=== PATIENT | male | born 1995 | race Two or more races ===

== ENCOUNTER 2016-04-21 18:32 | Emergency (ER) | payer OTHER ==
[~2016-04-21] VITALS: Ht 185.4 cm; Wt 80.0 kg
[~2016-04-21 18:32] MED LIST: CRUTMIS25; HYDR-3288 PO
[2016-04-21 18:49] VITALS: BP 135/67; PULSE 91; RESP 18; TEMP 101.6; O2SAT 98
[2016-04-21] MEDS ORDERED: ONDANSETRON HCL 4 MG/2 ML VIAL IV ONE (19:30)
[2016-04-21] MEDS ORDERED: SODIUM CHLOR 0.9% 1000 ML INJ 1,000 ML IV ONE ×2 (19:30→21:00)
--- NOTE | 2016-04-21 19:31 | PD ---
HPI Chief Complaint: Cold / Flu Symptoms Time Seen by Provider: 19:13 Travel History International Travel<30 days: No Contact w/Intl Traveler<30days: No Traveled to known affect area: No History of Present Illness HPI The patient is a 20 year old male who presents to the [facility] emergency department with a history of reportedly beginning to feel ill 4 days ago. The patient reports that this began with congestion and cough. He reports that he then developed nausea and vomiting on April 18 and then diarrhea over the last 2 days. He reports that over the last 24 hours she's had 2-3 episodes of brown loose stools. He denies having any mucus or blood in his stool. The patient reports that he has had generalized weakness. The patient arrives with a temperature of 101.6. He denies taking any Tylenol or ibuprofen for fever or discomfort prior to arrival. The patient reports that he has not been able to keep fluids down today. He reports that his emesis appears to be bilious. The patient's recent history is, located by approximately one month ago being diagnosed with a bimalleolar fracture of the right ankle status post surgical repair. The patient reports he went to [place] after having the repair done and did not follow-up with orthopedic physician. He reports that the splint that he was and became wet and "disgusting "therefore he removed it. The patient also has sutures in place that were not removed. The patient denies having any redness or increased swelling of the site. He reports that it has been chronically painful. He reports that since taking it out of the splint he has fallen 2 times. He cannot recall the name of the orthopedic physician that he was supposed to follow-up with. The patient denies any history of neck pain, chest pain, shortness of breath, abdominal pain, vomiting , diarrhea, urinary symptoms, or neurologic symptoms. [facility] Past Medical History Narrative Medical The patient's past medical history is significant for attention deficit disorder , however he is not currently on medication for treatment. ADHD: Yes (ADHD) Asthma: Yes (IN CHILDHOOD) Bipolar Disorder: Yes Anxiety: No Depression: No Cancer: No Cardiovascular Problems: No High Cholesterol: No Developmental Delay: No Diabetes: No Diminished Hearing: No Endocrine: No Genitourinary: No Immune Disorder: No Musculoskeletal: No Neurologic: No Psychiatric: Yes (ADHD, BPD) Reproductive: No Respiratory: No Immunizations Current: Yes Migraines: No Seizures: No Thyroid Disease: No Ulcer: No Past Surgical History Narrative Surgical The patient's past surgical history is significant for dental surgery, and ORIF of the right ankle bimalleolar fracture with syndesmosis disruption of the right ankle Appendectomy: No Cholecystectomy: No Eye Surgery: Yes (States due to scarring in his retina.) Oral Surgery: Yes (PERIODONTAL SURGERY 2-3 YEARS AGO) Pacemaker: No Other Surgery: Yes (2-3 YEARS AGO--REMOVAL OF IMPACTED TOOTH) Social History Alcohol Use: No Tobacco Use: Yes Substance Use: Yes (MARIJUANA) Allergies-Medications (Allergen,Severity, Reaction): Coded Allergies: No Known Allergies (Verified , 08/15/14) Reported Meds & Prescriptions Reported Meds & Active Scripts Active Zofran Odt (Ondansetron Odt) 4 Mg Tab 4 Mg SL Q6HR PRN Crutch/Aluminum/Adult (Device) 1 Mis Mis 1 Ea .ROUTE DIRECTED Kaleva (Hydrocodone-Acetaminophen) 7.5-325 mg Tab 1 Tab PO Q4H PRN Review of Systems Except as stated in HPI: all other systems reviewed are Neg General / Constitutional: Positive: Fever, Chills Eyes: No: Visual changes HENT: Positive: Sore Throat, Rhinorrhea, Congestion, No: Headaches Cardiovascular: No: Chest Pain or Discomfort, Dyspnea on exertion Respiratory: Positive: Cough, No: Shortness of Breath Gastrointestinal: Positive: Nausea, Vomiting, Diarrhea, Changes in Bowel Habits , No: Abdominal Pain, Hematemesis, Hematochezia, Constipation, Indigestion, Loss of Appetite Genitourinary: No: Dysuria, Flank Pain Musculoskeletal: Positive: Myalgias, Arthralgias, Limited ROM, Pain Skin: No Rash Neurologic: Positive: Weakness (generalized weakness), No: Focal Abnormalities , Change in Mentation, Slurred Speech, Sensory Disturbance Psychiatric: No: Depression Endocrine: No: Polydipsia Hematologic/Lymphatic: No: Easy Bruising Physical Exam Narrative General: The patient is a well-developed well-nourished male noted to be retching on my arrival to the room. Head and Neck exam: Head is normocephalic atraumatic. Eyes: Pupils are equal round and reactive to light. Nose: Midline septum with erythematous edematous nasal mucosa and clear to white nasal discharge noted. Mouth: Dentition unremarkable. Moist mucus membranes. Posterior oropharynx is slightly erythematous. No tonsillar hypertrophy. Uvula midline. Airway patent. Neck: No palpable lymphadenopathy. No nuchal rigidity. No thyromegaly. Cardiovascular: Regular rate and rhythm without murmurs, gallops, or rubs. Lungs: Clear to auscultation bilaterally. No wheezes, rhonchi, or rales. Abdomen: Soft, without tenderness to palpation in all 4 quadrants of the abdomen. No guarding, rebound, or rigidity. Negative [place] sign. Extremities: No clubbing, cyanosis, or edema. 2+ pulses in all 4 extremities. The area of interest is the right ankle, the patient is noted to have medial and lateral stitches in place. The patient's wounds have healed well. There is no erythema or edema noted. The patient does report having tenderness on palpation bilaterally, however he reports that he's had this since the surgery. There is no fluctuance noted. No pointing. No discharge. Back: No spinous process tenderness to palpation. No costovertebral angle tenderness to palpation. Neurologic Exam: Grossly nonfocal. Data Data Last Documented VS Vital Signs Date Time Temp Pulse Resp B/P Pulse Ox O2 Delivery O2 Flow Rate FiO2 04/21/16 21:56 99.7 84 16 93/51 97 04/21/16 19:32 Room Air Orders Complete Blood Count With Diff (04/21/16 19:22) Comprehensive Metabolic Panel (04/21/16 19:22) Blood Culture (04/21/16 19:22) C-Reactive Protein (Crp) (04/21/16 19:22) Lipase (04/21/16 19:22) Urinalysis - C+S If Indicated (04/21/16 19:22) [place] Sedimentation Rate (04/21/16 19:22) Chest, Single Ap (04/21/16 19:22) Iv Access Insert/Monitor (04/21/16 19:22) Ecg Monitoring (04/21/16 19:22) Oximetry (04/21/16 19:22) Lactic Acid Sepsis Protocol (04/21/16 19:22) Ankle, Complete ([id number]) (04/21/16 19:22) Ice/Cold Pack (04/21/16 19:22) Sodium Chlor 0.9% 1000 Ml Inj (Ns 1000 M (04/21/16 19:30) Ondansetron Inj (Zofran Inj) (04/21/16 19:30) Influenzae A/B Antigen (04/21/16 19:31) Sodium Chlor 0.9% 1000 Ml Inj (Ns 1000 M (04/21/16 21:00) Oral Rehydration (04/21/16 20:58) Acetaminophen (Tylenol) (04/21/16 21:15) Splint Or Brace Apply/Monitor (04/21/16 21:15) Crutches (04/21/16 21:15) Fiberglass Short Leg Splint Ad (04/21/16 ) Labs Laboratory Tests Test 04/21/16 19:25 White Blood Count 6.5 TH/MM3 Red Blood Count 5.18 MIL/MM3 Hemoglobin 14.4 GM/DL Hematocrit 42.9 % Mean Corpuscular Volume 82.8 FL Mean Corpuscular Hemoglobin 27.7 PG Mean Corpuscular Hemoglobin 33.5 % Concent Red Cell Distribution Width 12.8 % Platelet Count 140 TH/MM3 Mean Platelet Volume 9.4 FL Neutrophils (%) (Auto) 70.3 % Lymphocytes (%) (Auto) 19.2 % Monocytes (%) (Auto) 10.2 % Eosinophils (%) (Auto) 0.1 % Basophils (%) (Auto) 0.2 % Neutrophils # (Auto) 4.6 TH/MM3 Lymphocytes # (Auto) 1.2 TH/MM3 Monocytes # (Auto) 0.7 TH/MM3 Eosinophils # (Auto) 0.0 TH/MM3 Basophils # (Auto) 0.0 TH/MM3 CBC Comment DIFF FINAL Differential Comment Erythrocyte Sedimentation Rate 12 mm/hr Urine Color YELLOW Urine Turbidity CLEAR Urine pH 6.5 Urine Specific [place] 1.018 Urine Protein TRACE mg/dL Urine Glucose (UA) NEG mg/dL Urine Ketones 40 mg/dL Urine Occult Blood NEG Urine Nitrite NEG Urine Bilirubin NEG Urine Urobilinogen LESS THAN 2.0 MG/DL Urine Leukocyte Esterase NEG Urine RBC 1 /hpf Urine WBC 1 /hpf Urine Mucus FEW /lpf Microscopic Urinalysis Comment CULT NOT INDICATED Sodium Level 137 MEQ/L Potassium Level 3.9 MEQ/L Chloride Level 103 MEQ/L Carbon Dioxide Level 24.5 MEQ/L Anion Gap 10 MEQ/L Blood Urea Nitrogen 8 MG/DL Creatinine 1.02 MG/DL Estimat Glomerular Filtration 93 ML/MIN Rate Random Glucose 87 MG/DL Lactic Acid Level 1.1 mmol/L Calcium Level 8.4 MG/DL Total Bilirubin 0.4 MG/DL Aspartate Amino Transf 26 U/L (AST/SGOT) Alanine Aminotransferase 27 U/L (ALT/SGPT) Alkaline Phosphatase 94 U/L C-Reactive Protein 2.10 MG/DL Total Protein 7.9 GM/DL Albumin 3.8 GM/DL Lipase 107 U/L MDM Medical Decision Making Medical Screen Exam Complete: Yes Emergency Medical Condition: Yes Medical Record Reviewed: Yes Interpretation(s) Last Impressions Chest X-Ray 04/21/161921 Signed Impressions: Service Date/Time: Thursday, April 21, 2016 19:54 - CONCLUSION: No acute disease. Devante Magana MD FACR Ankle X-Ray 04/21/161921 Signed Impressions: Service Date/Time: Thursday, April 21, 2016 19:51 - CONCLUSION: Anatomic alignment. Otherwise, negative. Devante Magana MD FACR Differential Diagnosis Influenza, versus pneumonia, versus viral syndrome, versus sepsis, versus osteomyelitis Narrative Course During the course of the patients emergency department visit, the patients history, examination, and differential diagnosis were reviewed with the patient. The patient had IV access obtained and blood work sent for analysis. The patient's electronic medical record was reviewed. The orthopedic physician that was consulted regarding this patient's fracture with Dr. Cervantes. As the patient's surgical wounds have healed well, the patient's sutures will be removed. The patient was initially provided normal saline 1 L IV fluid bolus, Zofran 4 mg IV. The patients laboratory studies were reviewed and remarkable for a CBC that shows a white count of 6.5, hemoglobin 14.4, platelets 140 was 70.3 neutrophils , monocytosis at 10.2, sedimentation rate is 12, CMP is remarkable for a calcium of 8.4, C-reactive protein 2.10, lactic acid 1.1, urinalysis shows 40 ketones otherwise unremarkable, influenza antigen is negative. Radiology studies were reviewed and remarkable for a chest x-ray that is unremarkable. Ankle x-ray reveals anatomic alignment, no other acute abnormality. The patient's sutures were removed by me. The patient has no purulent drainage noted. The patient's electronic medical record was reviewed and the orthopedic surgeon that did his surgery was Dr. Hdz. He was instructed at discharge follow-up with Dr. Hdz 2 weeks after discharge. The patient was also instructed to not be weightbearing until follow-up. The patient denies having any crutches. The patient will be provided crutches. The patient was placed in a short posterior leg splint. The patient was instructed to follow-up with Dr. Hdz as soon as possible. The symptoms that the patient is experiencing based on the patient's evaluation are most likely to be related to a viral syndrome. The patient was given Tylenol for fever. The patient was given a second liter of normal saline IV fluids. The patient is resting comfortably and feels better, is alert and in no distress. The patients results and examination findings were discussed with him. The repeat examination is unremarkable and benign. The history, exam, diagnostic testing, and current condition do not suggest any significant pathology to warrant further testing, continued ED treatment, admission, or surgical evaluation at this point. The vital signs have been stable. The patient does not have uncontrollable pain, intractable vomiting, or other significant symptoms. The patient's condition is stable and appropriate for discharge. The patient will pursue further outpatient evaluation with a primary care physician or other designated or consulting physician as indicated in the discharge instructions. The patient expressed understanding and was agreeable with this plan. Sepsis Criteria SIRS Criteria (2 or more): Temp > 100.9 or < 96.8, Heart rate over 90 Diagnosis Primary Impression: Bimalleolar fracture of right ankle Qualified Code: S82.841D - Bimalleolar fracture of right ankle, closed, with routine healing, subsequent encounter Additional Impression: Viral syndrome Referrals: Ron Hdz MD 1 day Primary Care Physician 1 week Patient Instructions: General Instructions, Viral Syndrome (ED) Med/Other Pt SpecificInfo: Prescription(s) given Scripts Ondansetron Odt (Zofran Odt)4 Mg Tab4 Mg SL Q6HR PRN (Nausea/Vomiting) #7 TAB Ref 0 Prov:Anne Ortiz MD 04/21/16 Disposition: 01 DISCHARGE HOME Condition: Stable Anne Ortiz MD Apr 21, 2016 19:31
[2016-04-21 19:32] VITALS: O2SAT 96
[2016-04-21 19:53] LABS: AUTOMATED NEUTROPHIL # 4.6 TH/MM3 (1.8-7.7); BASOPHIL % 0.2 % (0.0-2.0); EOSINOPHIL % 0.1 % (0.0-4.0); HEMATOCRIT 42.9 % (39.0-51.0); HEMO FLAGS DIFF FINAL; LYMPH % 19.2 % (9.0-44.0); LYMPHOCYTE # 1.2 TH/MM3 (1.0-4.8); MEAN CELL VOLUME 82.8 FL (80.0-100.0); MEAN CORPUSCULAR HEMOGLOBIN 27.7 PG (27.0-34.0); MEAN CORPUSCULAR HGB CONC 33.5 % (32.0-36.0); MONO % 10.2 % (0.0-8.0); NEUT % 70.3 % (16.0-70.0); PLATELET COUNT 140 TH/MM3 (150-450); RED BLOOD COUNT 5.18 MIL/MM3 (4.50-5.90); RED CELL DISTRIBUTION WIDTH 12.8 % (11.6-17.2); WHITE BLOOD COUNT 6.5 TH/MM3 (4.0-11.0)
[2016-04-21 19:55] LABS: BLOOD, URINE NEG (NEG); COMMENT (UR) CULT NOT INDICATED; CULTURE IF INDICATED CULT NOT INDICATED; GLUCOSE,URINE NEG (NEG); KETONE, URINE 40 mg/dL (NEG); MUCUS URINE FEW /lpf (OCC); NITRITE,URINE NEG (NEG); PH, URINE 6.5 (5.0-8.5); URINE COLOR YELLOW (YELLW/STRAW)
--- NOTE | 2016-04-21 19:59 | RADRPT ---
EXAM DATE/TIME: 04/21/2016 19:51 [facility] COMPARISON: ANKLE RIGHT COMPLETE ([id number]), March 20, 2016, 13:13. INDICATIONS : Right ankle pain and swelling. Patient had ORIF of right ankle done on 03/21/16 sta tomy he has not had it recheck since. MEDICAL HISTORY : None. SURGICAL HISTORY : ORIF right ankle 03/21/16. ENCOUNTER: Initial ACUITY: 1 month PAIN SCORE: 7/10 LOCATION: Right ankle. FINDINGS: Plate with screws is seen bridging the fibular fracture. Cortical lag screws is seen bridging the me dial malleolus fracture. Alignment is anatomic. CONCLUSION: Anatomic alignment. Otherwise, negative. Devante Magana MD FACR on April 21, 2016 at 19:57 Board Certified Radiologist. This report was verified electronically.
--- NOTE | 2016-04-21 19:59 | RADRPT ---
EXAM DATE/TIME: 04/21/2016 19:54 [facility] COMPARISON: CHEST SINGLE AP, March 20, 2016, 15:18. INDICATIONS : Fever and cough. MEDICAL HISTORY : None. SURGICAL HISTORY : None. ENCOUNTER: Initial ACUITY: 4 - 6 days PAIN SCORE: 0/10 LOCATION: Bilateral chest FINDINGS: A single view of the chest demonstrates the lungs to be symmetrically aerated without evidence of mas s, infiltrate or effusion. The cardiomediastinal contours are unremarkable. Osseous structures are intact. CONCLUSION: No acute disease. Devante Magana MD FACR on April 21, 2016 at 19:57 Board Certified Radiologist. This report was verified electronically.
[2016-04-21 20:17] LABS: ANION GAP 10 MEQ/L (5-15); AST (GOT) 26 U/L (15-39); BICARBONATE 24.5 MEQ/L (21.0-32.0); BLOOD UREA NITROGEN 8 MG/DL (7-18); CHLORIDE 103 MEQ/L (98-107); GLOMERULAR FILTRATION RATE 93 ML/MIN (>89); POTASSIUM 3.9 MEQ/L (3.5-5.1); SODIUM (NA) 137 MEQ/L (136-145)
[2016-04-21 20:20] LABS: ALKALINE PHOSPHATASE 94 U/L (45-117); ALT (GPT) 27 U/L (9-52); TOTAL BILIRUBIN ADULT 0.4 MG/DL (0.2-1.0)
[2016-04-21] MEDS ORDERED: ACETAMINOPHEN 325 MG TAB PO ONE (21:15)
[2016-04-21] MEDS ORDERED: ZOFR4TAB3 SL (21:33)
[2016-04-21 21:56] VITALS: BP 93/51; TEMP 99.7
== END 2016-04-21 22:51 | disposition home or self-care (01) ==
LOC: NEPE 18:32
DX: B34.9 Viral infection, unspecified (principal); R05 Cough; R11.2 Nausea with vomiting, unspecified; R19.7 Diarrhea, unspecified; S82.841D Displaced bimalleolar fracture of right lower leg, subsequent encounter for closed fracture with routine healing; Z48.02 Encounter for removal of sutures; Z72.0 Tobacco use
CPT/HCPCS: 29515; 71010; 73610; 80053; 81001; 83605; 83690; 85025; 85652; 86140; 87040; 87804; 96361; 96374; 99284; E0113; J2405; J7030

== ENCOUNTER 2017-01-27 08:08 | Emergency (ER) | payer SELFPAY ==
[~2017-01-27] VITALS: Ht 185.4 cm; Wt 85.0 kg
[~2017-01-27 08:08] MED LIST changes: +ZOFR4TAB3 SL
[2017-01-27 08:12] VITALS: BP 130/60; PULSE 92; RESP 24; TEMP 99.4; O2SAT 98
[2017-01-27 08:36] VITALS: BP 130/67; PULSE 74; RESP 18; TEMP 98.9; O2SAT 98
[2017-01-27] MEDS ORDERED: SODIUM CHLOR 0.9% 1000 ML INJ 1,000 ML IV ONE (08:45)
[2017-01-27] MEDS ORDERED: ONDANSETRON HCL 4 MG/2 ML VIAL IV PUSH ONE (08:45)
[2017-01-27] MEDS ORDERED: KETOROLAC TROMETHAMINE 30 MG/ML (IVP) VIAL IV PUSH ONE (08:45)
--- NOTE | 2017-01-27 08:47 | PD ---
HPI Chief Complaint: GI Complaint Time Seen by Provider: 08:21 Travel History International Travel<30 days: No Contact w/Intl Traveler<30days: No Traveled to known affect area: No History of Present Illness HPI The patient is a 21-year-old male who presents emergency department for sore throat, body aches, nausea, and vomiting. The patient states his symptoms started last night with a sore throat, notes he has pain with swallowing, but is able tolerate oral intake. He also complains of some bilateral anterior neck pain. He does complain of diffuse body aches, myalgias, arthralgias, and generalized malaise. He also complains of mild nausea with one episode of vomiting. He denies any diarrhea, abdominal pain, or cough. He does note intermittent chills and sweats. He did not receive an influenza vaccination this year. He denies any sick contacts. Symptoms are moderate, there are no current alleviating or exacerbating factors. PFSH Past Medical History ADHD: Yes (ADHD) Asthma: Yes (IN CHILDHOOD) Bipolar Disorder: Yes Anxiety: No Depression: No Cancer: No Cardiovascular Problems: No High Cholesterol: No Developmental Delay: No Diabetes: No Diminished Hearing: No Endocrine: No Genitourinary: No Immune Disorder: No Musculoskeletal: No Neurologic: No Psychiatric: Yes (ADHD, BPD) Reproductive: No Respiratory: No Immunizations Current: Yes Migraines: No Seizures: No Thyroid Disease: No Ulcer: No Past Surgical History Appendectomy: No Cholecystectomy: No Eye Surgery: Yes Oral Surgery: Yes Pacemaker: No Other Surgery: Yes Social History Alcohol Use: Yes Tobacco Use: Yes (4-5 p/day) Substance Use: Yes (MARIJUANA) Allergies-Medications (Allergen,Severity, Reaction): Coded Allergies: No Known Allergies (Verified , 01/27/17) Reported Meds & Prescriptions Reported Meds & Active Scripts Active Review of Systems Except as stated in HPI: all other systems reviewed are Neg General / Constitutional: Positive: Fever, Chills HENT: Positive: Sore Throat, Neck Pain Cardiovascular: No: Chest Pain or Discomfort Respiratory: No: Cough, Shortness of Breath Gastrointestinal: Positive: Nausea, Vomiting, No: Diarrhea, Abdominal Pain Genitourinary: No: Dysuria Musculoskeletal: Positive: Myalgias Skin: No Rash Physical Exam Narrative GENERAL: Awake, alert, pleasant 21-year-old male who appears his stated age and is in no acute respiratory distress. SKIN: Focused skin assessment warm/dry. HEAD: Atraumatic. Normocephalic. EYES: Pupils equal and round. No scleral icterus. No injection or drainage. ENT: No nasal bleeding or discharge. Erythematous oropharynx with slightly enlarged tonsils. No exudate noted. NECK: Trachea midline. No JVD. Shotty bilateral anterior cervical lymphadenopathy. CARDIOVASCULAR: Regular rate and rhythm. No murmur appreciated. RESPIRATORY: No accessory muscle use. Clear to auscultation. Breath sounds equal bilaterally. GASTROINTESTINAL: Abdomen soft, non-tender, nondistended. No rebound tenderness. MUSCULOSKELETAL: No obvious deformities. No clubbing. No cyanosis. No edema. NEUROLOGICAL: Awake and alert. No obvious cranial nerve deficits. Motor grossly within normal limits. Normal speech. PSYCHIATRIC: Appropriate mood and affect; insight and judgment normal. Data Data Last Documented VS Vital Signs Date Time Temp Pulse Resp B/P (MAP) Pulse Ox O2 Delivery O2 Flow Rate FiO2 01/27/17 09:23 20 01/27/17 08:36 98.9 74 130/67 (88) 98 Room Air Orders Orders Complete Blood Count With Diff (01/27/17 08:37) Comprehensive Metabolic Panel (01/27/17 08:37) Group A Rapid Strep Screen (01/27/17 08:37) Influenzae A/B Antigen (01/27/17 08:37) Creatine Kinase (Cpk) (01/27/17 08:37) Sodium Chlor 0.9% 1000 Ml Inj (Ns 1000 M (01/27/17 08:45) Ondansetron Inj (Zofran Inj) (01/27/17 08:45) Ketorolac Inj (Toradol Inj) (01/27/17 08:45) Strep Culture (Group A) (01/27/17 09:00) Ed Discharge Order (01/27/17 11:00) Labs Laboratory Tests Test 01/27/17 09:15 White Blood Count 21.1 TH/MM3 Red Blood Count 5.06 MIL/MM3 Hemoglobin 14.6 GM/DL Hematocrit 42.7 % Mean Corpuscular Volume 84.4 FL Mean Corpuscular Hemoglobin 28.9 PG Mean Corpuscular Hemoglobin Concent 34.2 % Red Cell Distribution Width 12.3 % Platelet Count 171 TH/MM3 Mean Platelet Volume 9.0 FL Neutrophils (%) (Auto) 89.5 % Lymphocytes (%) (Auto) 3.8 % Monocytes (%) (Auto) 6.4 % Eosinophils (%) (Auto) 0.1 % Basophils (%) (Auto) 0.2 % Neutrophils # (Auto) 18.9 TH/MM3 Lymphocytes # (Auto) 0.8 TH/MM3 Monocytes # (Auto) 1.3 TH/MM3 Eosinophils # (Auto) 0.0 TH/MM3 Basophils # (Auto) 0.0 TH/MM3 CBC Comment DIFF FINAL Differential Comment Blood Urea Nitrogen 11 MG/DL Creatinine 1.16 MG/DL Random Glucose 116 MG/DL Total Protein 7.7 GM/DL Albumin 4.1 GM/DL Calcium Level 9.0 MG/DL Alkaline Phosphatase 68 U/L Aspartate Amino Transf (AST/SGOT) 13 U/L Alanine Aminotransferase (ALT/SGPT) 20 U/L Total Bilirubin 0.7 MG/DL Sodium Level 139 MEQ/L Potassium Level 3.6 MEQ/L Chloride Level 107 MEQ/L Carbon Dioxide Level 24.5 MEQ/L Anion Gap 8 MEQ/L Estimat Glomerular Filtration Rate 79 ML/MIN Total Creatine Kinase 218 U/L [facility] Medical Decision Making Medical Screen Exam Complete: Yes Emergency Medical Condition: Yes Medical Record Reviewed: Yes Interpretation(s) Laboratory Tests Test 01/27/17 09:15 White Blood Count 21.1 TH/MM3 Red Blood Count 5.06 MIL/MM3 Hemoglobin 14.6 GM/DL Hematocrit 42.7 % Mean Corpuscular Volume 84.4 FL Mean Corpuscular Hemoglobin 28.9 PG Mean Corpuscular Hemoglobin Concent 34.2 % Red Cell Distribution Width 12.3 % Platelet Count 171 TH/MM3 Mean Platelet Volume 9.0 FL Neutrophils (%) (Auto) 89.5 % Lymphocytes (%) (Auto) 3.8 % Monocytes (%) (Auto) 6.4 % Eosinophils (%) (Auto) 0.1 % Basophils (%) (Auto) 0.2 % Neutrophils # (Auto) 18.9 TH/MM3 Lymphocytes # (Auto) 0.8 TH/MM3 Monocytes # (Auto) 1.3 TH/MM3 Eosinophils # (Auto) 0.0 TH/MM3 Basophils # (Auto) 0.0 TH/MM3 CBC Comment DIFF FINAL Differential Comment Blood Urea Nitrogen 11 MG/DL Creatinine 1.16 MG/DL Random Glucose 116 MG/DL Total Protein 7.7 GM/DL Albumin 4.1 GM/DL Calcium Level 9.0 MG/DL Alkaline Phosphatase 68 U/L Aspartate Amino Transf (AST/SGOT) 13 U/L Alanine Aminotransferase (ALT/SGPT) 20 U/L Total Bilirubin 0.7 MG/DL Sodium Level 139 MEQ/L Potassium Level 3.6 MEQ/L Chloride Level 107 MEQ/L Carbon Dioxide Level 24.5 MEQ/L Anion Gap 8 MEQ/L Estimat Glomerular Filtration Rate 79 ML/MIN Total Creatine Kinase 218 U/L Date/Time Source Procedure Growth Status 01/27/17 09:10 Nasal Aspirate Influenza Types A,B Antigen (ARLENE) - Final NEGATIVE FOR FLU A AND B ANTIGEN.... Complete 01/27/17 09:00 Throat Group A Streptococcus Screen Pending Received 01/27/17 09:00 Throat Group A Streptococcus Screen (ARLENE) - Final Complete Differential Diagnosis Differential diagnosis includes influenza, viral syndrome, pharyngitis, mononucleosis, gastritis, dehydration. Narrative Course IV was established, labs are drawn and sent, and the patient was placed on cardiac telemetry monitoring and continuous pulse oximetry monitoring. Influenza screen was sent to lab. Strep screen was sent to lab. The patient received IV fluids, Toradol, and Zofran. The patient's flu screen is negative. Strep screen is negative. White count is elevated 21.1, however, no other evidence of infection. Patient has no cough and is not hypoxic, doubt pneumonia. With constellation of symptoms most likely viral syndrome. The patient was reassessed at 11 AM, his symptoms had significantly improved. Patient be discharged home. Diagnosis Primary Impression: Viral syndrome Patient Instructions: General Instructions Additional Instructions: Zofran as needed for nausea and vomiting. Plenty fluids to stay hydrated. Alternate Tylenol and Motrin for pain and/or fever. Return if symptoms worsen or progress. Med/Other Pt SpecificInfo: Prescription(s) given Scripts Ondansetron Odt (Zofran Odt) 4 Mg Tab 4 MG SL Q6HR Y for Nausea/Vomiting, #10 TAB 0 Refills Prov: Solitario Stearns MD 01/27/17 Disposition: 01 DISCHARGE HOME Condition: Stable Solitario Stearns MD Jan 27, 2017 08:47
[2017-01-27 09:33] LABS: AUTOMATED NEUTROPHIL # 18.9 TH/MM3 (1.8-7.7); BASOPHIL % 0.2 % (0.0-2.0); EOSINOPHIL % 0.1 % (0.0-4.0); HEMATOCRIT 42.7 % (39.0-51.0); HEMOGLOBIN 14.6 GM/DL (13.0-17.0); LYMPH % 3.8 % (9.0-44.0); LYMPHOCYTE # 0.8 TH/MM3 (1.0-4.8); MEAN CELL VOLUME 84.4 FL (80.0-100.0); MEAN CORPUSCULAR HEMOGLOBIN 28.9 PG (27.0-34.0); MEAN CORPUSCULAR HGB CONC 34.2 % (32.0-36.0); MONO % 6.4 % (0.0-8.0); MONOCYTE # 1.3 TH/MM3 (0-0.9); NEUT % 89.5 % (16.0-70.0); PLATELET COUNT 171 TH/MM3 (150-450); RED BLOOD COUNT 5.06 MIL/MM3 (4.50-5.90); RED CELL DISTRIBUTION WIDTH 12.3 % (11.6-17.2); WHITE BLOOD COUNT 21.1 TH/MM3 (4.0-11.0)
[2017-01-27 09:56] LABS: ALBUMIN 4.1 GM/DL (3.4-5.0); AST (GOT) 13 U/L (15-37); BICARBONATE 24.5 MEQ/L (21.0-32.0); BLOOD UREA NITROGEN 11 MG/DL (7-18); CHLORIDE 107 MEQ/L (98-107); CREATININE 1.16 MG/DL (0.60-1.30); GLOMERULAR FILTRATION RATE 79 ML/MIN (>89); GLUCOSE,RANDOM 116 MG/DL (74-106); SODIUM (NA) 139 MEQ/L (136-145)
[2017-01-27 10:00] LABS: ALKALINE PHOSPHATASE 68 U/L (45-117); ALT (GPT) 20 U/L (12-78); TOTAL BILIRUBIN ADULT 0.7 MG/DL (0.2-1.0); TOTAL PROTEIN 7.7 GM/DL (6.4-8.2)
[2017-01-27] MEDS ORDERED: ZOFR4TAB3 SL (11:04)
== END 2017-01-27 12:14 | disposition home or self-care (01) ==
LOC: NEPE 08:08
DX: B34.9 Viral infection, unspecified (principal); F17.200 Nicotine dependence, unspecified, uncomplicated
CPT/HCPCS: 80053; 82550; 85025; 87081; 87804; 87880; 96361; 96374; 96375; 99284; J1885; J2405; J7030

== ENCOUNTER 2017-03-18 12:35 | Emergency (ER) | payer OTHER ==
[~2017-03-18] VITALS: Ht 185.4 cm; Wt 79.0 kg
[~2017-03-18 12:35] MED LIST changes: -CRUTMIS25; -HYDR-3288 PO
[2017-03-18 13:01] VITALS: BP 145/86; PULSE 64; RESP 20; TEMP 99; O2SAT 96
[2017-03-18] MEDS: TETANUS/DIPHTHERIA TOXOID ADULT 0.5 ML VIAL IM ONE ×2 (13:30→13:35)
--- NOTE | 2017-03-18 13:53 | PD ---
HPI Chief Complaint: Head Injury Time Seen by Provider: 13:08 Travel History International Travel<30 days: No Contact w/Intl Traveler<30days: No Traveled to known affect area: No History of Present Illness HPI The patient is a 21-year-old [place] male who presents to the emergency department with police for laceration to the head. The patient states he went to work earlier today, was sent home early, when he arrived him he realized he had been burglarized. The patient called the police and when they showed up the patient apparently had a warrant out for his arrest. The patient was subsequently arrested. The patient was angry with the situation and banged his head against the inside of the police car, resulting in a laceration to the scalp. The patient denied any loss of consciousness with the incident and denies any current headache. The patient cannot recall his last tetanus shot. He denies any other current complaints. Symptoms are mild to moderate, exacerbated after purposely banging his head against the inside of the police car, and there are no current alleviating factors. PFSH Past Medical History ADHD: Yes (ADHD) Asthma: Yes (IN CHILDHOOD) Bipolar Disorder: Yes Anxiety: No Depression: No Cancer: No Cardiovascular Problems: No High Cholesterol: No Developmental Delay: No Diabetes: No Diminished Hearing: No Endocrine: No Genitourinary: No Immune Disorder: No Musculoskeletal: No Neurologic: No Psychiatric: Yes (ADHD/ bipolar) Reproductive: No Respiratory: No Immunizations Current: Yes Migraines: No Seizures: No Thyroid Disease: No Ulcer: No Tetanus Vaccination: > 5 Years Influenza Vaccination: No Past Surgical History Appendectomy: No Cholecystectomy: No Eye Surgery: Yes Oral Surgery: Yes Pacemaker: No Other Surgery: Yes Social History Alcohol Use: Yes Tobacco Use: Yes (1ppd) Substance Use: Yes (MARIJUANA) Allergies-Medications (Allergen,Severity, Reaction): Coded Allergies: No Known Allergies (Verified Allergy, Unknown, 03/18/17) Reported Meds & Prescriptions Reported Meds & Active Scripts Active No Active Prescriptions or Reported Medications Review of Systems Except as stated in HPI: all other systems reviewed are Neg HENT: Positive: Other (as noted in history of present illness), No: Headaches Cardiovascular: No: Chest Pain or Discomfort Respiratory: No: Shortness of Breath Gastrointestinal: No: Nausea, Vomiting Skin: Positive Other (laceration to the forehead) Neurologic: No: Dizziness, Headache, Change in Mentation Physical Exam Narrative GENERAL: Awake, alert, 21-year-old male who appears his stated age and is in no acute respiratory distress. SKIN: Focused skin assessment warm/dry. HEAD: The patient has a 7 cm laceration in the shape of a fishhook on the forehead that goes to the scalp line. EYES: Pupils equal and round. 4 mm bilateral and reactive. ENT: No nasal bleeding or discharge. Mucous membranes pink and moist. NECK: Trachea midline. No JVD. . MUSCULOSKELETAL: No obvious deformities. No clubbing. No cyanosis. No edema. NEUROLOGICAL: Awake and alert. No obvious cranial nerve deficits. Motor grossly within normal limits. Normal speech. 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 Nonfocal. PSYCHIATRIC: Appropriate mood and affect; insight and judgment normal. Data Data Last Documented VS Vital Signs Date Time Temp Pulse Resp B/P (MAP) Pulse Ox O2 Delivery O2 Flow Rate FiO2 03/18/17 13:01 99.0 64 20 145/86 (105) [address] Brain W/O Iv Contrast(Rout) (03/18/17 ) Tetanus/Diphtheria Tox Adult (Tetanus/Di (03/18/17 13:30) Lidocaine 1% Inj (50 Ml) (Xylocaine 1% I (03/18/17 15:15) MDM Medical Decision Making Medical Screen Exam Complete: Yes Emergency Medical Condition: Yes Medical Record Reviewed: Yes Interpretation(s) CT of the brain reveals frontal scalp swelling. No skull fracture. No intracranial hemorrhage. Differential Diagnosis Differential diagnosis includes laceration, closed head injury, intracranial hemorrhage, skull fracture, abrasion. Narrative Course CT of the brain was obtained. A tetanus shot was ordered, however, the patient refused the tetanus shot. After the patient returned from CT he then decided he would accept the tetanus shot and allow us to suture his laceration. Therefore, the tetanus shot was updated. CT of the brain was negative except for frontal tissue swelling. The laceration was sutured in a single layer fashion. He is advised to have the sutures removed in 5-7 days, Polysporin twice a day, monitor for signs of infection. Return sooner if symptoms worsen or progress. Procedures Procedure Narrative LACERATION LOCATION: Forehead LENGTH: 7 cm NUMBER OF STITCHES/APRIL: 8 REPAIR: The area of the laceration was prepped with Betadine and sterilely draped. The laceration was infiltrated with 1% lidocaine with a 27-gauge needle. The wound was copiously irrigated and explored without evidence of foreign body, tendon injury or neurovascular injury. The wound was closed using 5-0 nylon. This was a single layer repair. A sterile dressing was applied. The patient was advised to keep the dressing clean and dry. Patient tolerated the procedure well. Diagnosis Primary Impression: Laceration of forehead Qualified Codes: S01.81XA - Laceration without foreign body of other part of head, initial encounter Additional Impression: Closed head injury Qualified Codes: S09.90XA - Unspecified injury of head, initial encounter Patient Instructions: General Instructions Additional Instructions: Have the sutures removed in 5-7 days. Wound care instructions. Polysporin twice a day. Monitor for signs of infection. Return sooner if symptoms worsen or progress. Scripts No Active Prescriptions or Reported Meds Disposition: 01 DISCHARGE HOME Condition: Stable Solitario Stearns MD Mar 18, 2017 13:53
[2017-03-18] MEDS ORDERED: LIDOCAINE HCL 1% 50 ML VIAL INFIL ONE (15:15)
--- NOTE | 2017-03-18 15:42 | RADRPT ---
EXAM DATE/TIME: 03/18/2017 14:43 [facility] COMPARISON: No previous studies available for comparison. INDICATIONS : Hit head on car window. RADIATION DOSE: 56.35 CTDIvol (mGy) MEDICAL HISTORY : Asthma SURGICAL HISTORY : None. ENCOUNTER: Initial ACUITY: 1 day PAIN SCALE: 2/10 LOCATION: cranial TECHNIQUE: Multiple contiguous axial images were obtained of the head. Using automated exposure control and adj ustment of the mA and/or kV according to patient size, radiation dose was kept as low as reasonably a chievable to obtain optimal diagnostic quality images. DICOM format image data is available electro nically for review and comparison. FINDINGS: CEREBRUM: The ventricles are normal for age. No evidence of midline shift, mass lesion, hemorrhage or acute in farction. No extra-axial fluid collections are seen. POSTERIOR FOSSA: The cerebellum and brainstem are intact. The 4th ventricle is midline. The cerebellopontine angle i s unremarkable. EXTRACRANIAL: Soft tissue swelling is seen centrally along the forehead. The visualized portion of the orbits is in tact. SKULL: The calvaria is intact. No evidence of skull fracture. CONCLUSION: 1. Frontal subcutaneous soft tissue swelling 2. Intact skull 3. No evidence of acute intracranial process. Kanu Marrero MD on March 18, 2017 at 15:39 Board Certified Radiologist. This report was verified electronically.
== END 2017-03-18 16:30 | disposition home or self-care (01) ==
LOC: NEPE 12:35
DX: S01.81XA Laceration without foreign body of other part of head, initial encounter (principal); S09.90XA Unspecified injury of head, initial encounter; F90.9 Attention-deficit hyperactivity disorder, unspecified type; J45.909 Unspecified asthma, uncomplicated; F31.9 Bipolar disorder, unspecified; F17.200 Nicotine dependence, unspecified, uncomplicated; W22.8XXA Striking against or struck by other objects, initial encounter
CPT/HCPCS: 12014; 70450; 90471; 90714